=== PATIENT | male | born 1995 ===

== ENCOUNTER 2019-05-20 13:25 | Emergency (ER) | payer OTHER ==
[~2019-05-20] VITALS: Ht 185.4 cm; Wt 69.4 kg
[2019-05-20] MEDS ORDERED: MUCINEX DM ER1 EAC1 PO (18:50)
[2019-05-20] MEDS ORDERED: TESSALON PERLE100 M1 PO (18:50)
[2019-05-20] MEDS ORDERED: OSEL75CA PO (18:50)
[2019-05-20] MEDS ORDERED: AIRBORNE EFFER1 EACH PO (18:50)
[2019-05-20] MEDS ORDERED: XOFLUZA40 MG PO (18:51)
== END 2019-05-20 19:35 ==
LOC: ER 13:25
DX: J09.X2 Influenza due to identified novel influenza A virus with other respiratory manifestations (principal)